=== PATIENT | male | born 1935 | race Caucasian/White ===

== ENCOUNTER 2016-08-18 07:21 | Emergency (ER) | payer MEDICARE ==
[~2016-08-18] VITALS: Ht 172.7 cm; Wt 77.0 kg
[~2016-08-18 07:21] MED LIST: CIPR500T4 PO; CIPR500T93 PO; FENT25DI TD; GLIP5 PO; HYDR-3533 PO; NEUR600T PO; PROT40TA PO; TAMS0.4C67 PO; URIB118C PO
[2016-08-18 07:27] VITALS: BP 143/81; PULSE 82; RESP 16; TEMP 98.6; O2SAT 99
[2016-08-18] MEDS ORDERED: TAMS5CAP PO (07:39)
[2016-08-18] MEDS ORDERED: FENT25DI T-DERMAL (07:39)
[2016-08-18] MEDS ORDERED: URIB118C PO (07:39)
[2016-08-18] MEDS ORDERED: GABA600T PO (07:39)
[2016-08-18] MEDS ORDERED: PROT40TA PO (07:39)
[2016-08-18] MEDS ORDERED: HYDR-3533 PO (07:39)
--- NOTE | 2016-08-18 08:00 | PD ---
HPI Chief Complaint: Musculoskeletal Complaint Time Seen by Provider: 07:34 Travel History International Travel<30 days: No Contact w/Intl Traveler<30days: No Traveled to known affect area: No History of Present Illness HPI This patient came because he was worried about aspirating. He has history of difficulty swallowing and esophageal narrowing. He's had throat cancer in the past. He is not having any shortness of breath. He has chronic back pain for many years. He follows with pain management and takes Lortab and Duragesic patch. No new acute back problem. No fall or fever. Symptoms severity is mild PFSH Past Medical History Arthritis: Yes Cardiovascular Problems: No High Cholesterol: No Diabetes: Yes Patient Takes Glucophage: No Diminished Hearing: Yes ([place]) GERD: Yes Genitourinary: Yes (enlaraged prostate ) Integumentary: Yes (MRSA LEFT FOREARM) Immunizations Current: Yes Influenza Vaccination: Yes Past Surgical History Cholecystectomy: Yes Social History Alcohol Use: No (quit ) Tobacco Use: No (QUIT OVER 50+ YEARS AGO- smokes socially 1-3 cigs) Substance Use: No Allergies-Medications (Allergen,Severity, Reaction): Coded Allergies: Sulfa (Unverified Allergy, Mild, RASH, 08/18/16) *MDRO Multi-Drug Resistant Organism (Verified Allergy, Unknown, 02/11/16) MRSA Abscess 02/2013 Reported Meds & Prescriptions Reported Meds & Active Scripts Active Reported Flomax (Tamsulosin HCl) 0.4 Mg Cap 0.4 Mg PO HS Uribel (Cpuvalfdejy-Ffyxy-Elkltvljr Blue) 1 Cap 1 Cap PO TID Lortab (Hydrocodone-Acetaminophen) 5-325 Mg Tab 1 Tab PO Q6H PRN Protonix (Pantoprazole Sodium) 40 Mg Tab 40 Mg PO DAILY Gabapentin 600 Mg Tab 600 Mg PO BID Fentanyl Patch 72 HR (Fentanyl) 25 Mcg/Hr Patch 25 Mcg T-DERMAL Q72H Review of Systems General / Constitutional: No: Fever HENT: No: Headaches Cardiovascular: No: Chest Pain or Discomfort Physical Exam Narrative NECK: Symmetrical appearance, midline trachea. No mass or crepitus. Thyroid without enlargement, tenderness, or mass. SKIN: Inspection shows no rash or ulcers. Palpation shows no induration or nodules. Back: Has muscular tenderness on either side of the spine. There is no midline tenderness. He has kyphosis and a lot of healed back scars Data Data Last Documented VS Vital Signs Date Time Temp Pulse Resp B/P Pulse Ox O2 Delivery O2 Flow Rate FiO2 08/18/16 07:27 98.6 82 16 143/81 99 MDM Medical Decision Making Medical Screen Exam Complete: Yes Emergency Medical Condition: Yes Medical Record Reviewed: Yes Differential Diagnosis Esophageal stricture, chronic back pain, anxiety Narrative Course I have reviewed the patient's electronic medical record. Was last here January 2016 for UTI Patient is neurologically intact and doesn't look particular symptomatic. His vital signs are normal. No red flags to suggest emergent imaging is indicated. Is to follow-up with primary care to discuss his chronic back pain and esophageal issues. May need endoscopy or esophageal dilation but not having an emergent issue today Discussed full liquid diet and avoidance of steak chicken and things that may be difficult to swallow Diagnosis Primary Impression: Chronic back pain greater than 3 months duration Additional Impression: History of esophageal stricture Referrals: Family Practice Physician call for appointment Rehabilitation Team Lead call for appointment Patient Instructions: General Instructions Departure Forms: Tests/Procedures Additional Instructions: The patient was advised to follow up with their physician and return if they worsen. Follow-up with GI physician Med/Other Pt SpecificInfo: Other Disposition: 01 DISCHARGE HOME Condition: Stable Johnson Beltran MD Aug 18, 2016 08:00
== END 2016-08-18 08:07 | disposition home or self-care (01) ==
LOC: PHED 07:21
DX: M54.9 Dorsalgia, unspecified (principal); G89.29 Other chronic pain; Z87.19 Personal history of other diseases of the digestive system; E11.9 Type 2 diabetes mellitus without complications; H91.90 Unspecified hearing loss, unspecified ear; Z85.89 Personal history of malignant neoplasm of other organs and systems; Z87.39 Personal history of other diseases of the musculoskeletal system and connective tissue; Z87.438 Personal history of other diseases of male genital organs; Z86.14 Personal history of Methicillin resistant Staphylococcus aureus infection; Z87.891 Personal history of nicotine dependence
CPT/HCPCS: 99283

== ENCOUNTER 2017-04-19 18:15 | Emergency (ER) | payer MEDICARE ==
[~2017-04-19] VITALS: Ht 172.7 cm; Wt 80.0 kg
[~2017-04-19 18:15] MED LIST changes: -CIPR500T4 PO; -CIPR500T93 PO; +FENT25DI T-DERMAL; -FENT25DI TD; +GABA600T PO; -GLIP5 PO; -NEUR600T PO; -TAMS0.4C67 PO; +TAMS5CAP PO
[2017-04-19 18:26] VITALS: BP 207/104; PULSE 103; RESP 20; TEMP 98.1; O2SAT 95
--- NOTE | 2017-04-19 18:57 | PD ---
HPI Chief Complaint: Complaint Time Seen by Provider: 18:41 Travel History International Travel<30 days: No Contact w/Intl Traveler<30days: No Traveled to known affect area: No History of Present Illness HPI PATIENT SEEN BY [facility] WHO DID BIOPSIES (BLADDER AND PROSTATE) AND PLACED A BOWMAN. BOWMAN WAS DRAINING WELL UNTIL TODAY WHEN IT STOPPED DRAINING AND PT DEVELOPED SUPRAPUBIC PAIN, 6/10, PRESSURE, NONRAD, NO ALLEVIATING/ AGGRAVATING...DENIES N/V/D/CP/SARMIENTO/FEVER AT THIS TIME PFSH Past Medical History Arthritis: Yes Cardiovascular Problems: No High Cholesterol: No Diabetes: Yes Diminished Hearing: Yes ([place]) GERD: Yes Genitourinary: Yes (enlaraged prostate ) Integumentary: Yes (MRSA LEFT FOREARM) Immunizations Current: Yes Past Surgical History Cholecystectomy: Yes Social History Alcohol Use: No (quit ) Tobacco Use: No (QUIT OVER 50+ YEARS AGO- smokes socially 1-3 cigs) Substance Use: No Allergies-Medications (Allergen,Severity, Reaction): Coded Allergies: Sulfa (Sulfonamide Antibiotics) (Unverified Allergy, Mild, RASH, 04/19/17) *MDRO Multi-Drug Resistant Organism (Verified Allergy, Unknown, 04/19/17) MRSA Abscess 02/2013 Reported Meds & Prescriptions Reported Meds & Active Scripts Active Reported Creon (Amylase/Lipase/Protease) 24,000-76,000-120,000 Units Cap 1 Cap PO TIDPC Flomax (Tamsulosin HCl) 0.4 Mg Cap 0.4 Mg PO HS Uribel (Msqcieezcyo-Bbwdz-Qmtjnbywu Blue) 1 Cap 1 Cap PO TID Lortab (Hydrocodone-Acetaminophen) 5-325 Mg Tab 1 Tab PO Q6H PRN Protonix (Pantoprazole Sodium) 40 Mg Tab 40 Mg PO DAILY Gabapentin 600 Mg Tab 600 Mg PO BID Fentanyl Patch 72 HR (Fentanyl) 25 Mcg/Hr Patch 25 Mcg T-DERMAL Q72H Review of Systems Except as stated in HPI: all other systems reviewed are Neg Genitourinary: Positive: Urgency, Other (SUPRAPUBIC PAIN) Physical Exam Narrative GENERAL: SKIN: Warm and dry. HEAD: Atraumatic. Normocephalic. EYES: Pupils equal and round. No scleral icterus. No injection or drainage. ENT: No nasal bleeding or discharge. Mucous membranes pink and moist. NECK: Trachea midline. No JVD. CARDIOVASCULAR: Regular rate and rhythm. RESPIRATORY: No accessory muscle use. Clear to auscultation. Breath sounds equal bilaterally. GASTROINTESTINAL: Abdomen soft, non-tender, SUPRAPUBIC MILDLY distended TO UMBILICUS. MUSCULOSKELETAL: Extremities without clubbing, cyanosis, or edema. No obvious deformities. NEUROLOGICAL: Awake and alert. No obvious cranial nerve deficits. Motor grossly within normal limits. Five out of 5 muscle strength in the arms and legs. Normal speech. PSYCHIATRIC: Appropriate mood and affect; insight and judgment normal. Data Data Last Documented VS Vital Signs Date Time Temp Pulse Resp B/P (MAP) Pulse Ox O2 Delivery O2 Flow Rate FiO2 04/19/17 19:29 65 15 141/82 (101) 98 Room Air 04/19/17 18:26 98.1 Orders Orders Ed Discharge Order (04/19/17 19:33) MDM Medical Decision Making Medical Screen Exam Complete: Yes Emergency Medical Condition: Yes Medical Record Reviewed: Yes Differential Diagnosis URINARY RETENTION DUE TO CLOTS Narrative Course PATIENT'S BOWMAN WAS IRRIGATED AND STARTED TO FLOW WELL AFTER 2 SEPARATE CLOTS WERE REMOVED, WILL D/C PATIENT HOME AND RECC TO F/U WITH UROLOGIST TOMORROW Diagnosis Primary Impression: Obstructed Bowman catheter Qualified Codes: T83.091A - Other mechanical complication of indwelling urethral catheter, initial encounter Patient Instructions: Bowman Catheter Placement and Care (GEN), General Instructions Additional Instructions: KEEP YOUR APPOINTMENT WITH UROLOGIST TOMORROW Disposition: 01 DISCHARGE HOME Condition: Stable Giuseppe Parker MD Apr 19, 2017 18:57
[2017-04-19] MEDS ORDERED: CREON24 PO (19:07)
[2017-04-19 19:29] VITALS: BP 141/82; PULSE 65; RESP 15; O2SAT 98
== END 2017-04-19 20:05 | disposition home or self-care (01) ==
LOC: PHED 18:15
DX: T83.091A Other mechanical complication of indwelling urethral catheter, initial encounter (principal)
CPT/HCPCS: 99282

== ENCOUNTER 2017-09-28 14:47 | Emergency (ER) | payer MEDICARE ==
[~2017-09-28] VITALS: Ht 172.7 cm; Wt 80.9 kg
[~2017-09-28 14:47] MED LIST changes: +CREON24 PO
[2017-09-28 14:49] VITALS: BP 169/90; PULSE 84; RESP 18; TEMP 98.4; O2SAT 99
[2017-09-28] MEDS ORDERED: ONDANSETRON HCL 4 MG/2 ML VIAL IVP ONE (15:00)
[2017-09-28] MEDS ORDERED: SODIUM CHLORIDE 0.9% FLUSH 10 ML FLUSH IV FLUSH PRN (15:00)
[2017-09-28] MEDS ORDERED: HYDROmorphone HCL PF 2 MG/ML VIAL IVS ONE (15:00)
--- NOTE | 2017-09-28 15:00 | PD ---
HPI Chief Complaint: Back/ Neck Pain or Injury Time Seen by Provider: 14:57 Travel History International Travel<30 days: No Contact w/Intl Traveler<30days: No Traveled to known affect area: No History of Present Illness HPI Patient comes in with a 2 day history of right sided right flank pain radiating toward his right lower quadrant. Rates it about a 8 out of 10 when it is occurring, although currently is just a little bit of soreness and rates it at about a 2 out of 10. Patient denies any associated factors such as fever, rash , headache, neck pain OR chest pain. Patient denies any alleviating or aggravating factors. Patient has allergy to sulfa Past medical history includes hard of hearing, wears glasses, cholecystectomy, GERD, enlarged prostate with urinary retention issues, patient has had diabetes also, the patient also has had a history of orthopedic surgeries such as bilateral knee surgeries and neck and back rods placed PFSH Past Medical History Arthritis: Yes Cardiovascular Problems: No High Cholesterol: No Diabetes: Yes Diminished Hearing: Yes ([place]) GERD: Yes Genitourinary: Yes (enlaraged prostate, urinary retention) Integumentary: Yes (MRSA LEFT FOREARM) Immunizations Current: Yes Past Surgical History Cholecystectomy: Yes Other Surgery: Yes (left shoulder) Social History Alcohol Use: No (quit ) Tobacco Use: No (QUIT OVER 50+ YEARS AGO- smokes socially 1-3 cigs) Substance Use: No Allergies-Medications (Allergen,Severity, Reaction): Coded Allergies: Sulfa (Sulfonamide Antibiotics) (Unverified Allergy, Mild, RASH, 09/28/17) *MDRO Multi-Drug Resistant Organism (Verified Allergy, Unknown, 09/28/17) MRSA Abscess 02/2013 Reported Meds & Prescriptions Reported Meds & Active Scripts Active Reported Creon (Amylase/Lipase/Protease) 24,000-76,000-120,000 Units Cap 1 Cap PO TIDPC Flomax (Tamsulosin HCl) 0.4 Mg Cap 0.4 Mg PO HS Uribel (Yhesusldkuy-Jgldq-Dzysjnkeq Blue) 1 Cap 1 Cap PO TID Protonix (Pantoprazole Sodium) 40 Mg Tab 40 Mg PO DAILY Gabapentin 600 Mg Tab 600 Mg PO BID Fentanyl Patch 72 HR (Fentanyl) 25 Mcg/Hr Patch 25 Mcg T-DERMAL Q72H Review of Systems General / Constitutional: No: Fever Eyes: No: Visual changes HENT: No: Headaches Cardiovascular: No: Chest Pain or Discomfort Respiratory: No: Shortness of Breath Gastrointestinal: No: Abdominal Pain Genitourinary: Positive: Flank Pain Musculoskeletal: No: Pain Skin: No Rash Neurologic: No: Weakness Psychiatric: No: Depression Endocrine: No: Polydipsia Hematologic/Lymphatic: No: Easy Bruising Physical Exam Narrative GENERAL: SKIN: Warm and dry. HEAD: Atraumatic. Normocephalic. EYES: Pupils equal and round. No scleral icterus. No injection or drainage. ENT: No nasal bleeding or discharge. Mucous membranes pink and moist. NECK: Trachea midline. No JVD. CARDIOVASCULAR: Regular rate and rhythm. RESPIRATORY: No accessory muscle use. Clear to auscultation. Breath sounds equal bilaterally. GASTROINTESTINAL: Abdomen soft, non-tender, nondistended. MUSCULOSKELETAL: Extremities without clubbing, cyanosis, or edema. No obvious deformities. NEUROLOGICAL: Awake and alert. No obvious cranial nerve deficits. Motor grossly within normal limits. Five out of 5 muscle strength in the arms and legs. Normal speech. PSYCHIATRIC: Appropriate mood and affect; insight and judgment normal. Data Data Last Documented VS Vital Signs Date Time Temp Pulse Resp B/P (MAP) Pulse Ox O2 Delivery O2 Flow Rate FiO2 09/28/17 16:45 81 16 142/77 (98) 100 Room Air 09/28/17 14:49 98.4 Orders Orders Complete Blood Count With Diff (09/28/17 14:57) Comprehensive Metabolic Panel (09/28/17 14:57) Lipase (09/28/17 14:57) Urinalysis - C+S If Indicated (09/28/17 14:57) Ct Abd/Pel W/O Iv Contrast (09/28/17 14:57) Iv Access Insert/Monitor (09/28/17 14:57) Ecg Monitoring (09/28/17 14:57) Oximetry (09/28/17 14:57) NPO (09/28/17 14:57) Hydromorphone Pf Inj (Dilaudid Pf Inj) (09/28/17 15:00) Ondansetron Inj (Zofran Inj) (09/28/17 15:00) Sodium Chloride 0.9% Flush (Ns Flush) (09/28/17 15:00) Electrocardiogram (09/28/17 14:57) Ketorolac Inj (Toradol Inj) (09/28/17 16:30) Labs Laboratory Tests Test 09/28/17 15:30 09/28/17 16:15 White Blood Count 6.3 TH/MM3 Red Blood Count 3.70 MIL/MM3 Hemoglobin 10.4 GM/DL Hematocrit 32.5 % Mean Corpuscular Volume 87.8 FL Mean Corpuscular Hemoglobin 28.2 PG Mean Corpuscular Hemoglobin Concent 32.1 % Red Cell Distribution Width 12.5 % Platelet Count 190 TH/MM3 Mean Platelet Volume 7.0 FL Neutrophils (%) (Auto) 53.9 % Lymphocytes (%) (Auto) 34.0 % Monocytes (%) (Auto) 8.0 % Eosinophils (%) (Auto) 3.0 % Basophils (%) (Auto) 1.1 % Neutrophils # (Auto) 3.4 TH/MM3 Lymphocytes # (Auto) 2.1 TH/MM3 Monocytes # (Auto) 0.5 TH/MM3 Eosinophils # (Auto) 0.2 TH/MM3 Basophils # (Auto) 0.1 TH/MM3 CBC Comment DIFF FINAL Differential Comment Blood Urea Nitrogen 19 MG/DL Creatinine 1.40 MG/DL Random Glucose 104 MG/DL Total Protein 8.5 GM/DL Albumin 3.3 GM/DL Calcium Level 8.5 MG/DL Alkaline Phosphatase 133 U/L Aspartate Amino Transf (AST/SGOT) 28 U/L Alanine Aminotransferase (ALT/SGPT) 24 U/L Total Bilirubin 0.4 MG/DL Sodium Level 134 MEQ/L Potassium Level 4.8 MEQ/L Chloride Level 104 MEQ/L Carbon Dioxide Level 22.3 MEQ/L Anion Gap 8 MEQ/L Estimat Glomerular Filtration Rate 48 ML/MIN Lipase 33 U/L Urine Color GREEN Urine Turbidity CLEAR Urine pH 5.0 Urine Specific [place] LESS/EQUAL 1.005 Urine Protein NEG mg/dL Urine Glucose (UA) NEG mg/dL Urine Ketones NEG mg/dL Urine Occult Blood NEG Urine Nitrite NEG Urine Bilirubin NEG Urine Urobilinogen 0.2 MG/DL Urine Leukocyte Esterase NEG Urine RBC 0-3 /hpf Urine WBC 0-2 /hpf Urine Squamous Epithelial Cells 0-5 /hpf Microscopic Urinalysis Comment CULT NOT INDICATED MDM Medical Decision Making Medical Screen Exam Complete: Yes Emergency Medical Condition: Yes Medical Record Reviewed: Yes Differential Diagnosis Pyelonephritis versus ureterolithiasis versus UTI versus pancreatitis versus AAA Narrative Course CBC shows no leukocytosis, normal platelet count, no left shift, mild anemia of 10.4 Chemistry shows normal electrolytes except for creatinine of 1.4 with a GFR of 48, normal liver function test, normal lipase function test. CT abdomen pelvis was read by radiologist shows no acute obstructive uropathy, slight prominence of the pancreatic head and uncinate process as well as minimal pack peripancreatic streakiness surrounding the pancreatic head raising the possibility of focal acute pancreatitis?, Chronic calcific pancreatitis, enlarged prostate, degenerative changes and scoliosis of the thoracolumbar spine. Diagnosis Primary Impression: Right flank pain NOS Patient Instructions: Clear Liquid Diet (ED), General Instructions, Pancreatitis (ED) Scripts Hydrocodone-Acetaminophen ([place]) 10-325 Mg Tab 1 TAB PO Q4H Y for PAIN, #14 TAB 0 Refills Prov: Giuseppe Parker MD 09/28/17 Ondansetron Odt (Zofran Odt) 4 Mg Tab 4 MG SL Q8HR Y for Nausea/Vomiting, #20 TAB 0 Refills Prov: Giuseppe Parker MD 09/28/17 Disposition: 01 DISCHARGE HOME Condition: Stable Giuseppe Parker MD Sep 28, 2017 15:00
[2017-09-28 15:03] VITALS: O2SAT 98
[2017-09-28 15:38] LABS: AUTOMATED NEUTROPHIL # 3.4 TH/MM3 (1.8-7.7); BASOPHIL # 0.1 TH/MM3 (0-0.2); BASOPHIL % 1.1 % (0.0-2.0); EOSINOPHIL # 0.2 TH/MM3 (0-0.4); HEMATOCRIT 32.5 % (39.0-51.0); HEMOGLOBIN 10.4 GM/DL (13.0-17.0); LYMPHOCYTE # 2.1 TH/MM3 (1.0-4.8); MEAN CELL VOLUME 87.8 FL (80.0-100.0); MEAN CORPUSCULAR HEMOGLOBIN 28.2 PG (27.0-34.0); MEAN CORPUSCULAR HGB CONC 32.1 % (32.0-36.0); MONOCYTE # 0.5 TH/MM3 (0-0.9); NEUT % 53.9 % (16.0-70.0); PLATELET COUNT 190 TH/MM3 (150-450); RED CELL DISTRIBUTION WIDTH 12.5 % (11.6-17.2); WHITE BLOOD COUNT 6.3 TH/MM3 (4.0-11.0)
[2017-09-28 15:45] LABS: CHLORIDE 104 MEQ/L (98-107); SODIUM (NA) 134 MEQ/L (136-145)
[2017-09-28 15:48] LABS: CALCIUM 8.5 MG/DL (8.5-10.1)
[2017-09-28 15:49] LABS: ALBUMIN 3.3 GM/DL (3.4-5.0); BICARBONATE 22.3 MEQ/L (21.0-32.0); BLOOD UREA NITROGEN 19 MG/DL (7-18); GLUCOSE,RANDOM 104 MG/DL (74-106)
[2017-09-28 15:51] LABS: ALT (GPT) 24 U/L (12-78); AST (GOT) 28 U/L (15-37)
[2017-09-28 15:52] LABS: GLOMERULAR FILTRATION RATE 48 ML/MIN (>89)
--- NOTE | 2017-09-28 15:52 | RADRPT ---
EXAM DATE/TIME: 09/28/2017 15:13 [facility] COMPARISON: CT PULMONARY ANGIOGRAM, December 29, 2014, 9:09. INDICATIONS : Right flank and low back pain. ORAL CONTRAST: No oral contrast ingested. RADIATION DOSE: 7.96 CTDIvol (mGy) MEDICAL HISTORY : Diabetes mellitus type 2. Gastroesophageal reflux disease. SURGICAL HISTORY : Cholecystectomy. Rods in cervical and lumbar spines. ENCOUNTER: Initial ACUITY: 1 week PAIN SCALE: 8/10 LOCATION: Right flank TECHNIQUE: Volumetric scanning of the abdomen and pelvis was performed. Using automated exposure control and ad justment of the mA and/or kV according to patient size, radiation dose was kept as low as reasonably achievable to obtain optimal diagnostic quality images. DICOM format image data is available electro nically for review and comparison. FINDINGS: LOWER LUNGS: Fibrotic scarring is noted within the lung bases posteriorly. LIVER: Homogeneous density without lesion. There is no dilation of the biliary tree. No calcified gallston es. SPLEEN: Normal size without lesion. PANCREAS: Slight prominence of the pancreatic head and uncinate process as well as minimal peripancreatic strea kiness surrounding the pancreatic head raising the possibility of focal acute pancreatitis. Correlati on with amylase and lipase is recommended. Punctate calcifications are noted throughout the pancreas indicating chronic calcific pancreatitis. KIDNEYS: Normal in size and shape. There is no mass, stone, or hydronephrosis. ADRENAL GLANDS: Within normal limits. VASCULAR: There is no aortic aneurysm. BOWEL/MESENTERY: The stomach, small bowel, and colon demonstrate no acute abnormality. There is no free intraperitone al air or fluid. ABDOMINAL WALL: Within normal limits. RETROPERITONEUM: There is no lymphadenopathy. BLADDER: No wall thickening or mass. REPRODUCTIVE: The prostate gland is enlarged. INGUINAL: There is no lymphadenopathy or hernia. MUSCULOSKELETAL: Degenerative changes and scoliosis of the thoraco-lumbar spine are noted. Extensive hardware is noted throughout the lumbar and lower thoracic spine. CONCLUSION: 1. No acute obstructive uropathy. 2. Slight prominence of the pancreatic head and uncinate process as well as minimal peripancreatic st reakiness surrounding the pancreatic head raising the possibility of focal acute pancreatitis. Correl ation with amylase and lipase is recommended. 3. Chronic calcific pancreatitis. 4. Enlarged prostate. 5. Degenerative changes and scoliosis of the thoracolumbar spine. Salomon Fink MD on September 28, 2017 at 15:40 Board Certified Radiologist. This report was verified electronically.
[2017-09-28 15:53] LABS: TOTAL BILIRUBIN ADULT 0.4 MG/DL (0.2-1.0); TOTAL PROTEIN 8.5 GM/DL (6.4-8.2)
[2017-09-28 15:54] LABS: ALKALINE PHOSPHATASE 133 U/L (45-117)
[2017-09-28 16:21] LABS: BILIRUBIN, URINE NEG (NEG); BLOOD, URINE NEG (NEG); GLUCOSE,URINE NEG (NEG); KETONE, URINE NEG (NEG); NITRITE,URINE NEG (NEG); URINE LEUKOCYTE ESTERASE NEG (NEG)
[2017-09-28 16:26] LABS: URINE COLOR GREEN (YELLW/STRAW)
[2017-09-28 16:28] LABS: RBC, URINE 0-3 /hpf (0-3); SQUAMOUS EPITHELIAL CELL URINE 0-5 /hpf (0-5); WBC, URINE 0-2 /hpf (0-5)
[2017-09-28] MEDS ORDERED: KETOROLAC TROMETHAMINE 30 MG/ML (IVP) VIAL IV PUSH ONE (16:30)
[2017-09-28 16:45] VITALS: BP 142/77; PULSE 81; RESP 16; O2SAT 100
[2017-09-28] MEDS ORDERED: HYDR-3366 PO (17:08)
[2017-09-28] MEDS ORDERED: ZOFR4TAB3 SL (17:08)
--- NOTE | 2017-09-29 16:57 | EKG ---
Date Performed: 09/28/2017 Time Performed: 15:10:31 PTAGE: 82 years EKG: NORMAL Sinus rhythm WITH FIRST DEGREE AV BLOCK ABNORMAL ECG Compared to PREVIOUS TRACING , patient now meets criteria for first degree AV block PREVIOUS TRACIN09/11/2015 17.02 DOCTOR: Deja Dc Interpretating Date/Time 09/29/2017 16:56:36
== END 2017-09-28 17:20 | disposition home or self-care (01) ==
LOC: PHED 14:47
DX: R10.9 Unspecified abdominal pain (principal); K86.1 Other chronic pancreatitis; N40.0 Benign prostatic hyperplasia without lower urinary tract symptoms; I44.0 Atrioventricular block, first degree; E11.9 Type 2 diabetes mellitus without complications; K21.9 Gastro-esophageal reflux disease without esophagitis; Z88.2 Allergy status to sulfonamides; Z72.0 Tobacco use; Z79.899 Other long term (current) drug therapy
CPT/HCPCS: 74176; 80053; 81001; 83690; 85025; 93005; 96374; 96375; 99285; J1170; J1885; J2405

== ENCOUNTER 2018-02-16 16:18 | Observation (INO) ==
[2018-02-16] MEDS ORDERED: Acetaminophen 325 MG Tablet PO ONE (16:44)
[2018-02-16] MEDS ORDERED: Sod Chloride 0.9% Inj 1,000 ML IV.SIG SCH (16:45)
[2018-02-16 17:07] LABS: Baso % (Auto) 0.2 % (0.0-2.0); Eos % (Auto) 0.1 % (0.0-4.0); Hematocrit 30.8 % (39.0-51.0); Hemoglobin 10.2 gm/dL (13.0-17.0); Lymph # (Auto) 1.2 th/mm3 (1.0-4.8); Lymph % (Auto) 13.7 % (9.0-44.0); Mean Corpuscular HGB Conc 33.1 % (32.0-36.0); Mean Corpuscular Hemoglobin 28.7 pg (27.0-34.0); Mean Corpuscular Volume 86.7 fL (80.0-100.0); Mean Platelet Volume 7.2 fL (7.0-11.0); Mono % (Auto) 10.6 % (0.0-8.0); Neut # (Auto) 6.8 th/mm3 (1.8-7.7); Neut % (Auto) 75.4 % (16.0-70.0); Platelet Count 141 th/mm3 (150-450); Red Blood Count 3.55 mil/mm3 (4.50-5.90); Red Cell Distribution Width 15.3 % (11.6-17.2)
--- NOTE | 2018-02-16 17:21 | XR ---
EXAM DATE: 02/16/2018 5:17 PM EDT AGE/SEX: 82 years / Male INDICATIONS: Shortness of breath. CLINICAL DATA: This is the patient's initial encounter. Patient reports that signs and symptoms have been present for 1 day and indicates a pain score of 0/10. MEDICAL/SURGICAL HISTORY: Diabetes. None. COMPARISON: [facility], CHEST SINGLE AP, 02/11/2016. . FINDINGS: The lungs are clear without infiltrate, nodule, or mass. There is no appreciable pleural effusion for technique. Heart and mediastinum are unremarkable. Total shoulder arthroplasty is agai n seen on the left. There are postsurgical changes lower thoracic lumbar spine junction with superimp osed degenerative change. CONCLUSION: No acute cardiopulmonary disease. Electronically signed by: Antonio Og MD 02/16/2018 5:20 PM EDT
[2018-02-16 17:27] LABS: Alanine Aminotransferase 21 U/L (12-78); Anion Gap 9 meq/L (5-15); Aspartate Aminotransferase 16 U/L (15-37); Blood Urea Nitrogen 26 mg/dL (7-18); Calcium 7.7 mg/dL (8.5-10.1); Carbon Dioxide 21.2 meq/L (21.0-32.0); Chloride 105 meq/L (98-107); Glomerular Filtration Rate 38 mL/min (>89); Glucose,Random 126 mg/dL (74-106); Lipase 22 U/L (73-393); Magnesium 1.8 mg/dL (1.5-2.5); Potassium 4.8 meq/L (3.5-5.1); Sodium 135 meq/L (136-145)
[2018-02-16 17:31] LABS: Alkaline Phosphatase 115 U/L (45-117); Total Protein 8.1 g/dL (6.4-8.2); Troponin I 0.03 ng/mL (0.02-0.05)
[2018-02-16 18:12] LABS: Bacteria,Urine Moderate /hpf; Bilirubin,Urine Negative (Negative); Clarity,Urine Cloudy (Clear); Color,Urine Blue (Yellw/Straw); Glucose,Urine (UA) Negative (Negative); Leukocyte Esterase,Urine Large (Negative); Mucus,Urine Few /lpf (Occasional); Nitrite,Urine Negative (Negative); Specific Gravity,Urine 1.013 (1.002-1.035); Squamous Epithelial Cell,Urine <1 /hpf (0-5)
--- NOTE | 2018-02-16 18:58 | CT ---
EXAM DATE: 02/16/2018 6:46 PM EDT AGE/SEX: 82 years / Male INDICATIONS: Altered mental status. CLINICAL DATA: This is the patient's initial encounter. Patient reports that signs and symptoms have been present for 1 day and indicates a pain score of 5/10. MEDICAL/SURGICAL HISTORY: None. None. RADIATION DOSE: 56.35 CTDI (mGy) COMPARISON: [facility], CT BRAIN W/O CONTRAST, 09/11/2015. . TECHNIQUE: CT of the head without contrast. Using automated exposure control and adjustment of the mA and/or kV according to patient size, radiation dose was kept as low as reasonably achievable to ob tain optimal diagnostic quality images. DICOM format image data is available electronically for revi ew and comparison. FINDINGS: There is no evidence for intracranial hemorrhage, mass effect, mass lesions, or edema. The visualize d bony structures appear intact. Slight degree of brain atrophy is seen. Slight periventricular whit e matter changes are seen nonspecific mostly consistent with chronic small vessel ischemic changes. There are no signs of acute infarction for technique. CONCLUSION: Slight chronic small vessel ischemic and atrophic changes. . Electronically signed by: Antonio Og MD 02/16/2018 6:57 PM EDT
--- NOTE | 2018-02-16 19:02 | CT ---
EXAM DATE: 02/16/2018 6:52 PM EDT AGE/SEX: 82 years / Male INDICATIONS: Abdomen pain. CLINICAL DATA: This is the patient's initial encounter. Patient reports that signs and symptoms have been present for 1 day and indicates a pain score of 5/10. MEDICAL/SURGICAL HISTORY: None. None. ORAL CONTRAST: No oral contrast ingested. RADIATION DOSE: 7.55 CTDI (mGy) COMPARISON: [facility], CT ABDOMEN & PELVIS W/O CONTRAST, 09/28/2017. . TECHNIQUE: Multiple contiguous axial images were obtained through the abdomen and pelvis following b olus infusion of 50 ml Visipaque 320 (iodixanol) nonionic water-soluble contrast as a single exam d ose. No oral contrast ingested. Using automated exposure control and adjustment of the mA and/or kV according to patient size, radiation dose was kept as low as reasonably achievable to obtain optimal diagnostic quality images. DICOM format image data is available electronically for review and compar jeri. FINDINGS: Abdomen CT: The liver, spleen, right kidney, adrenals are unremarkable. There is no evidence for any appreciable pathological adenopathy, free fluid, or bowel obstruction. The pancreas is atrophic and multiple calc ifications are present most likely from chronic pancreatitis. Approximate 2.2 cm simple cyst is prese nt in left kidney. There is scarring versus atelectasis both lung bases. Coronary artery calcificatio ns are seen typically seen with coronary artery disease and clinical correlation and evaluation is delong ggested. Pelvic CT: There is no evidence for mass, abscess formation, or any significant adenopathy within the pelvis. L umbar scoliosis is seen convexity towards the right with postsurgical changes within the lumbosacral spine. The prostate gland measures 5.0 x 5.7 cm in AP and transverse diameters inhomogeneous in ap pearance and nonspecific. CONCLUSION: Atrophic pancreas and calcifications within it chronic in nature, chronic changes of the patient's spine otherwise unremarkable. Electronically signed by: Antonio Og MD 02/16/2018 7:01 PM EDT
--- NOTE | 2018-02-16 19:23 | ED ---
HPI General Chief complaint: Altered Mental Status Stated complaint: AMS,Evac Time Seen by Provider: 02/16/18 16:44 History of Present Illness HPI narrative: Patient is an 82-year-old male presents emergency department for evaluation of altered mental status. Patient fairly confused and delirious on arrival, he is pleasant and cooperative however. He is oriented to self and place only. Cannot provide any of his history. Sometime after my initial evaluation with him arrives and states that he does have a history of frequent urinary tract infections and follows with urologist. She is also noticed that he has been febrile at home. No cough no congestion no nausea no vomiting no abdominal pain prior to his presentation today. Symptoms moderate, for the past 48 hours, gradually worsening, associated signs symptoms and context as above Related Data Home Medications Medication Instructions Recorded Confirmed hydrocodone-acetaminophen 1 tab PO TID PRN 02/16/18 02/16/18 [id number] [Creon] 3 cap PO AC 02/16/18 02/16/18 linnirty-hzfgw-xdg 1 tab PO TID 02/16/18 02/16/18 [Uribel] pantoprazole 40 mg PO DAILY 02/16/18 02/16/18 pregabalin [Lyrica] 75 mg PO DAILY 02/16/18 02/16/18 pregabalin [Lyrica] 150 mg PO HS 02/16/18 02/16/18 Allergies Allergy/AdvReac Type Severity Reaction Status Date / Time Sulfa (Sulfonamide Allergy Mild RASH Unverified 09/28/17 14:48 Antibiotics) Review of Systems ROS: all other systems reviewed are negative PMFSH Social History Social History Substance History: No History of Abuse Second Hand Smoke Exposure: Yes Smoking Status: Unknown if ever smoked How Often Do You Have a Drink Containing Alcohol: Unable to Obtain Recent Travel in [facility] within the Last 8 Weeks: No Recent Out of Country Travel within the Last 8 Weeks: No Immunization History Tetanus Immunization: Unable to Assess Hx Influenza Vaccine This Season: Unable to Assess Exam Narrative Exam Narrative: GENERAL: Well-developed well-nourished no obvious distress, pleasantly confused peer SKIN: Focused skin assessment warm/dry. HEAD: Atraumatic. Normocephalic. EYES: Pupils equal and round. No scleral icterus. No injection or drainage. ENT: No nasal bleeding or discharge. Mucous membranes pink and moist. NECK: Trachea midline. No JVD. CARDIOVASCULAR: Regular rate and rhythm. No murmur appreciated. RESPIRATORY: No accessory muscle use. Clear to auscultation. Breath sounds equal bilaterally. GASTROINTESTINAL: Abdomen soft, non-tender, nondistended. Hepatic and splenic margins not palpable. MUSCULOSKELETAL: No obvious deformities. No clubbing. No cyanosis. No edema. NEUROLOGICAL: Awake and alert, oriented 2. Cranial nerves II through XII grossly intact and nonfocal, 5 out of 5 strength in all 4 extremities per PSYCHIATRIC: Pleasantly confused. Insight and judgment fairly poor. Course Initial Documented Vital Signs Temperature 103.1 F H 02/16/18 16:25 Pulse Rate 90 02/16/18 16:25 Respiratory Rate 19 02/16/18 16:25 Blood Pressure 146/70 H 02/16/18 16:25 Pulse Oximetry 98 02/16/18 16:25 Last Documented Vital Signs Temperature 99.1 F 02/17/18 03:57 Pulse Rate 76 02/17/18 03:57 Respiratory Rate 18 02/17/18 03:57 Blood Pressure 126/62 02/17/18 03:57 Pulse Oximetry 98 02/17/18 03:57 Medical Decision Making MDM Narrative Medical decision making narrative: Patient room to the emergency department, delirium, has had a history of UTIs in the past per , UA does show some significant pyuria. Otherwise he has fever but no significant tachycardia or tachypnea, white count is within normal limits. Therefore only 1 out of 4 Sirs criteria not technically septic. Hemodynamically he is doing well. I started him on Rocephin. Will discuss with the hospitalist for admission for complicated UTI with delirium peer Medical Screen Exam Complete: Yes Emergency Medical Condition: Yes Lab Data Result diagrams: 02/17/18 04:30 02/17/18 04:30 Lab Results 02/16/18 02/16/18 02/16/18 Range/Units 16:40 16:40 16:45 WBC 9.0 (4.0-11.0) th/mm3 RBC 3.55 L (4.50-5.90) mil/mm3 Hgb 10.2 L (13.0-17.0) gm/dL Hct 30.8 L (39.0-51.0) % MCV 86.7 (80.0-100.0) fL MCH 28.7 (27.0-34.0) pg MCHC 33.1 (32.0-36.0) % RDW 15.3 (11.6-17.2) % Plt Count 141 L (150-450) th/mm3 MPV 7.2 (7.0-11.0) fL Prelim Diff (Auto) Neut % (Auto) 75.4 H (16.0-70.0) % Lymph % (Auto) 13.7 (9.0-44.0) % [place] % (Auto) 10.6 H (0.0-8.0) % Eos % (Auto) 0.1 (0.0-4.0) % Baso % (Auto) 0.2 (0.0-2.0) % Neut # (Auto) 6.8 (1.8-7.7) th/mm3 Lymph # (Auto) 1.2 (1.0-4.8) th/mm3 [place] # (Auto) 1.0 H (0.0-0.9) th/mm3 Eos # (Auto) 0.0 (0.0-0.4) th/mm3 Baso # (Auto) 0.0 (0.0-0.2) th/mm3 WBC Differential . Diff Scan Differential Comment Auto diff final Platelet Estimate (Normal) Platelet Morphology (Normal) Hematology Comments Sodium 135 L (136-145) meq/L Potassium 4.8 (3.5-5.1) meq/L Chloride 105 (98-107) meq/L Carbon Dioxide 21.2 (21.0-32.0) meq/L Anion Gap 9 (5-15) meq/L BUN 26 H (7-18) mg/dL Creatinine 1.71 H (0.60-1.30) mg/dL Estimated GFR 38 L (>89) mL/min Random Glucose 126 H (74-106) mg/dL Lactic Acid 1.2 (0.4-2.0) mmol/L Calcium 7.7 L (8.5-10.1) mg/dL Prot Corrected Calcium (8.5-10.1) mg/dL Magnesium 1.8 (1.5-2.5) mg/dL Total Bilirubin 0.6 (0.2-1.0) mg/dL AST 16 (15-37) U/L ALT 21 (12-78) U/L Alkaline Phosphatase 115 (45-117) U/L Troponin I 0.03 (0.02-0.05) ng/mL Total Protein 8.1 (6.4-8.2) g/dL Albumin 3.0 L (3.4-5.0) g/dL Lipase 22 L (73-393) U/L Urine Color (Yellw/Straw) Urine Clarity (Clear) Urine pH (5.0-8.5) Ur Specific [place] (1.002-1.035) Urine Protein (Neg-Trace) mg/dL Urine Glucose (UA) (Negative) mg/dL Urine Ketones (Negative) mg/dL Urine Occult Blood (Negative) Urine Nitrate (Negative) Urine Bilirubin (Negative) Urine Urobilinogen (Less than 2) mg/dL Ur Leukocyte Esterase (Negative) Urine RBC (0-3) /hpf Urine WBC (0-5) /hpf Urine WBC Clumps (None) Ur Squamous Epith Cells (0-5) /hpf Urine Bacteria (None) /hpf Urine Mucus (Occasional) /lpf Micro UA Comment Ur Microscopic Review Urine Culture Comments 02/16/18 02/17/18 02/17/18 Range/Units 17:35 04:30 04:30 WBC 8.9 (4.0-11.0) th/mm3 RBC 3.50 L (4.50-5.90) mil/mm3 Hgb 9.9 L (13.0-17.0) gm/dL Hct 30.2 L (39.0-51.0) % MCV 86.3 (80.0-100.0) fL MCH 28.4 (27.0-34.0) pg MCHC 32.9 (32.0-36.0) % RDW 15.8 (11.6-17.2) % Plt Count 112 L (150-450) th/mm3 MPV 8.0 (7.0-11.0) fL Prelim Diff (Auto) Slide review pending Neut % (Auto) 66.3 (16.0-70.0) % Lymph % (Auto) 20.5 (9.0-44.0) % [place] % (Auto) 12.3 H (0.0-8.0) % Eos % (Auto) 0.6 (0.0-4.0) % Baso % (Auto) 0.3 (0.0-2.0) % Neut # (Auto) 5.9 (1.8-7.7) th/mm3 Lymph # (Auto) 1.8 (1.0-4.8) th/mm3 [place] # (Auto) 1.1 H (0.0-0.9) th/mm3 Eos # (Auto) 0.1 (0.0-0.4) th/mm3 Baso # (Auto) 0.0 (0.0-0.2) th/mm3 WBC Differential . Diff Scan Auto diff confirmed Differential Comment . Platelet Estimate Low L (Normal) Platelet Morphology Normal (Normal) Hematology Comments Sodium 140 (136-145) meq/L Potassium 4.6 (3.5-5.1) meq/L Chloride 108 H (98-107) meq/L Carbon Dioxide 17.9 L (21.0-32.0) meq/L Anion Gap 14 (5-15) meq/L BUN 22 H (7-18) mg/dL Creatinine 1.49 H (0.60-1.30) mg/dL Estimated GFR 45 L (>89) mL/min Random Glucose 113 H (74-106) mg/dL Lactic Acid (0.4-2.0) mmol/L Calcium 7.4 L* (8.5-10.1) mg/dL Prot Corrected Calcium 7.5 L (8.5-10.1) mg/dL Magnesium (1.5-2.5) mg/dL Total Bilirubin 0.5 (0.2-1.0) mg/dL AST 17 (15-37) U/L ALT 16 (12-78) U/L Alkaline Phosphatase 104 (45-117) U/L Troponin I (0.02-0.05) ng/mL Total Protein 7.0 D (6.4-8.2) g/dL Albumin 2.6 L (3.4-5.0) g/dL Lipase (73-393) U/L Urine Color Blue (Yellw/Straw) Urine Clarity Cloudy H (Clear) Urine pH 5.0 (5.0-8.5) Ur Specific [place] 1.013 (1.002-1.035) Urine Protein Negative (Neg-Trace) mg/dL Urine Glucose (UA) Negative (Negative) mg/dL Urine Ketones Negative (Negative) mg/dL Urine Occult Blood Small H (Negative) Urine Nitrate Negative (Negative) Urine Bilirubin Negative (Negative) Urine Urobilinogen Less than 2 (Less than 2) mg/dL Ur Leukocyte Esterase Large H (Negative) Urine RBC 1 (0-3) /hpf Urine WBC 139 H (0-5) /hpf Urine WBC Clumps Few H (None) Ur Squamous Epith Cells <1 (0-5) /hpf Urine Bacteria Moderate H (None) /hpf Urine Mucus Few H (Occasional) /lpf Micro UA Comment Culture indicated Ur Microscopic Review Not Reportable Urine Culture Comments Culture indicated Imaging Data Radiologist's impression: Abdomen/Pelvis CT 02/16/18 16:43 CONCLUSION: Atrophic pancreas and calcifications within it chronic in nature, chronic changes of the patient's spine otherwise unremarkable. Chest X-Ray 02/16/18 16:43 CONCLUSION: No acute cardiopulmonary disease. Head CT 02/16/18 16:43 CONCLUSION: Slight chronic small vessel ischemic and atrophic changes. . Discharge Plan Discharge Disposition Patient Disposition: 30 Still Patient Physicians Team ED Provider: Salomon Seth Primary Care Provider: UNKNOWN, Attending Provider: Miroslava Escalera Discharge Interventions Interventions: ED Discharge Assessment Last Done: 02/16/18 20:28 Vital Signs Last Done: 02/16/18 19:21 Status ED Status: Left Department Discharge Information Discharge Date/Time: 02/16/18 20:36
[2018-02-16] MEDS ORDERED: Bisacodyl 10 MG Supp RECTAL PRN (19:28)
[2018-02-16] MEDS ORDERED: Acetaminophen 325 MG Tablet PO PRN (19:28)
--- NOTE | 2018-02-16 19:29 | P.HPIM ---
History of Present Illness Primary Care Physician: UNKNOWN History of Present Illness: This is an 82-year-old male with a PMH of HTN and Chronic Pancreatitis who was brought to the ER by EMS secondary to AMS. Unable to obtain history from patient due to mental status. Per report, pt was noted to be acting strange by family members, didn't recognize granddaughter and has had episodes of confusion. No reported neuro deficits. On arrival, BP 146/70, HR 90, O2 sat 98 % on RA, Temp 103.1. WBC 9.0. Hemoglobin 10.2. Platelets 141. Creatinine 1.71, previously 1.40 on 09/28/2017. Lactic Acid 1.2. UA positive UTI. CT Head with slight chronic small vessel ischemic changes. CXR with no acute findings. CT Abdomen/Pelvis atrophic pancreas and calcifications, chronic. S/ p Rocephin in ER. - Diagnosis (1) Encephalopathy (2) UTI (urinary tract infection) (3) Renal insufficiency Review of Systems PAST FAMILY HISTORY: Unable to obtain. unobtainable due to mental status PMFSH - History History Provided By: Patient - Medical History Medical History: Medical History (Last Updated 02/16/18 @ 17:28 by Kedar Bailey RN) Surgical history unknown Diabetes type 2, controlled - Surgical History Surgical History: Surgical History (Last Updated 02/16/18 @ 17:29 by Kedar Bailey RN) H/O neck surgery History of back surgery History of bilateral knee replacement - Tobacco History Smoking Status: Former smoker - Alcohol History How Often Do You Have a Drink Containing Alcohol: Never - Travel History Recent Travel in the [place] Within the Last 8 Weeks: No Recent Travel Out of the Country Within the Last 8 Weeks: No - Immunization History Tetanus Immunization: Unable to Assess Hx Influenza Vaccine This Season: Unable to Assess Medications and Allergies Active Medications: Active Medications Sodium Chloride (Ns Inj) 1,000 mls @ 0 mls/hr IV.SIG BOLUS JORGE Last Admin: 02/16/18 17:00 Dose: 999 mls/hr Allergies Allergy/AdvReac Type Severity Reaction Status Date / Time Sulfa (Sulfonamide Allergy Mild RASH Unverified 09/28/17 14:48 Antibiotics) Home Medications Medication Instructions Recorded Confirmed Type hydrocodone-acetaminophen 1 tab PO TID PRN 02/16/18 02/16/18 History udmfrz-[id number] [Creon] 3 cap PO AC 02/16/18 02/16/18 History methen-marah-s.sndr-lwnkv-lad 1 tab PO TID 02/16/18 02/16/18 History [Uribel] pantoprazole 40 mg PO DAILY 02/16/18 02/16/18 History pregabalin [Lyrica] 75 mg PO DAILY 02/16/18 02/16/18 History pregabalin [Lyrica] 150 mg PO HS 02/16/18 02/16/18 History Exam Vital signs: Vital Signs 02/16/18 16:25 02/16/18 19:21 Temperature 103.1 F H Pulse Rate 90 79 Respiratory Rate 19 16 Blood Pressure 146/70 H 133/62 Pulse Oximetry 98 98 Intake & Output 02/16/18 02/16/18 02/17/18 06:59 18:59 06:59 Weight 81.647 kg Narrative: PE: GENERAL: Elderly white male in no acute distress, pleasantly confused.. SKIN: Focused skin assessment warm and dry. HEENT: PERRLA, EOMI. No scleral icterus or conjunctival pallor. No lid lag or facial droop. CARDIOVASCULAR: Regular rate and rhythm. No obvious murmurs to auscultation. No chest tenderness to palpation. RESPIRATORY: No obvious rhonchi or wheezing. Clear to auscultation. Breath sounds equal bilaterally. GASTROINTESTINAL: Abdomen soft, non-tender, nondistended. BS normal. MUSCULOSKELETAL: Extremities without clubbing, cyanosis, or edema. No obvious deformities. NEUROLOGICAL: Awake, alert and oriented to person, place. No focal neurologic deficits. Moving both upper and lower extremities spontaneously. PSYCHIATRIC: Appropriate mood and affect. Insight and judgment normal. Results - Labs CBC & Chem 7: 02/16/18 16:45 02/16/18 16:40 Labs: Short CBC 02/16/18 Range/Units 16:45 WBC 9.0 (4.0-11.0) th/mm3 Hgb 10.2 L (13.0-17.0) gm/dL Hct 30.8 L (39.0-51.0) % Plt Count 141 L (150-450) th/mm3 BMP 02/16/18 16:40 Sodium 135 L Potassium 4.8 Chloride 105 Carbon Dioxide 21.2 BUN 26 H Creatinine 1.71 H Calcium 7.7 L Cardiac Enzymes 02/16/18 Range/Units 16:40 Troponin I 0.03 (0.02-0.05) ng/mL Liver Function 02/16/18 Range/Units 16:40 Total Bilirubin 0.6 (0.2-1.0) mg/dL AST 16 (15-37) U/L ALT 21 (12-78) U/L Alkaline Phosphatase 115 (45-117) U/L Albumin 3.0 L (3.4-5.0) g/dL Urine 02/16/18 Range/Units 17:35 Urine Color Blue (Yellw/Straw) Urine Clarity Cloudy H (Clear) Urine pH 5.0 (5.0-8.5) Ur Specific [place] 1.013 (1.002-1.035) Urine Protein Negative (Neg-Trace) mg/dL Urine Glucose (UA) Negative (Negative) mg/dL - Imaging Impressions Abdomen/Pelvis CT 02/16/18 16:43 CONCLUSION: Atrophic pancreas and calcifications within it chronic in nature, chronic changes of the patient's spine otherwise unremarkable. Chest X-Ray 02/16/18 16:43 CONCLUSION: No acute cardiopulmonary disease. Head CT 02/16/18 16:43 CONCLUSION: Slight chronic small vessel ischemic and atrophic changes. . Caprini VTE Risk Assessment Caprini VTE Risk Assessment: No/Low Risk (score <= 1) Caprini Risk Assessment Model: Point Value = 1 Point Value = 2 Point Value = 3 Point Value = 5 Age 41-60 Minor surgery BMI > 25 kg/m2 Swollen legs Varicose veins or History of unexplained or recurrent spontaneous Oral contraceptives or hormone replacement Sepsis (< 1 month) Serious lung disease, including pneumonia (< 1 month) Abnormal pulmonary function Acute myocardial infarction Congestive heart failure (< 1 month) History of inflammatory bowel disease Medical patient at bed rest Age 61-74 Arthroscopic surgery Major open surgery (> 45 min) Laparoscopic surgery (> 45 min) Malignancy Confined to bed (> 72 hours) Immobilizing plaster cast Central venous access Age >= 75 History of VTE Family history of VTE Factor V Leiden Prothrombin [id number] Lupus anticoagulant Anticardiolipin antibodies Elevated serum homocysteine Heparin-induced thrombocytopenia Other congenital or acquired thrombophilia Stroke (< 1 month) Elective arthroplasty Hip, pelvis, or leg fracture Acute spinal cord injury (< 1 month) Prophylaxis Regimen: Total Risk Factor Score Risk Level Prophylaxis Regimen 0-1 Low Early ambulation 2 Moderate Order ONE of the following: *Sequential Compression Device (SCD) *Heparin 5000 units SQ BID 3-4 Higher Order ONE of the following medications: *Heparin 5000 units SQ TID *Enoxaparin/Lovenox 40 mg SQ daily (WT < 150 kg, CrCl > 30 mL/min) *Enoxaparin/Lovenox 30 mg SQ daily (WT < 150 kg, CrCl > 10-29 mL/min) *Enoxaparin/Lovenox 30 mg SQ BID (WT < 150 kg, CrCl > 30 mL/min) AND/OR *Sequential Compression Device (SCD) 5 or more Highest Order ONE of the following medications: *Heparin 5000 units SQ TID (Preferred with Epidurals) *Enoxaparin/Lovenox 40 mg SQ daily (WT < 150 kg, CrCl > 30 mL/min) *Enoxaparin/Lovenox 30 mg SQ daily (WT < 150 kg, CrCl > 10-29 mL/min) *Enoxaparin/Lovenox 30 mg SQ BID (WT < 150 kg, CrCl > 30 mL/min) AND *Sequential Compression Device (SCD) Assessment and Plan - Assessment (1) Encephalopathy Code(s): G93.40 - Encephalopathy, unspecified Status: Acute (2) UTI (urinary tract infection) Code(s): N39.0 - Urinary tract infection, site not specified Status: Acute (3) Renal insufficiency Code(s): N28.9 - Disorder of kidney and ureter, unspecified Status: Acute - Plan A/P: 1. Encephalopathy: Likely underlying/worsening dementia compounded by acute infection w/ UTI. CT Head w/ no acute findings, images reviewed. Admit for Observation, Neuro Checks, PT for eval/tx. Consult Neuro if no improvement after IV Abx. 2. UTI: U/a w/ UTI, s/p Rocephin, continue IV Abx, follow up cultures, monitor I/O. 3. MICHAEL: Creatinine 1.71, previously 1.40 on 09/28/17, likely secondary to UTI/ Dehydration, IVF for hydration, repeat labs in am. 4. DVT Prophylaxis: SCD/Teds 5. Social work for d/c planning as needed. 6. Case discussed w/ ER physician at length, labs/records/imaging reviewed by me.
[2018-02-16] MEDS: Senna/Docusate Sodium 8.6/50 MG Tablet PO SCH (23:02)
[2018-02-16] MEDS: Sod Chloride 0.9% Inj 1,000 ML IV.CONT SCH (23:02)
[2018-02-17] MEDS: Sod Chloride 0.9% Inj 1,000 ML IV.CONT SCH ×3 (05:16→14:59)
[2018-02-17 05:56] LABS: Baso % (Auto) 0.3 % (0.0-2.0); Eos # (Auto) 0.1 th/mm3 (0.0-0.4); Eos % (Auto) 0.6 % (0.0-4.0); Hematocrit 30.2 % (39.0-51.0); Hemoglobin 9.9 gm/dL (13.0-17.0); Lymph # (Auto) 1.8 th/mm3 (1.0-4.8); Lymph % (Auto) 20.5 % (9.0-44.0); Mean Corpuscular HGB Conc 32.9 % (32.0-36.0); Mean Corpuscular Hemoglobin 28.4 pg (27.0-34.0); Mean Corpuscular Volume 86.3 fL (80.0-100.0); Mono # (Auto) 1.1 th/mm3 (0.0-0.9); Mono % (Auto) 12.3 % (0.0-8.0); Neut # (Auto) 5.9 th/mm3 (1.8-7.7); Neut % (Auto) 66.3 % (16.0-70.0); Platelet Count 112 th/mm3 (150-450); Red Cell Distribution Width 15.8 % (11.6-17.2); White Blood Count 8.9 th/mm3 (4.0-11.0)
[2018-02-17 06:01] LABS: Albumin 2.6 g/dL (3.4-5.0); Calcium 7.4 mg/dL (8.5-10.1); Carbon Dioxide 17.9 meq/L (21.0-32.0); Potassium 4.6 meq/L (3.5-5.1)
[2018-02-17 06:23] LABS: Platelet Morphology Normal (Normal)
[2018-02-17] MEDS: Senna/Docusate Sodium 8.6/50 MG Tablet PO SCH ×2 (08:31→22:10)
--- NOTE | 2018-02-17 09:44 | P.PN ---
Subjective Interval history: Follow-up visit HTN, chronic pain, urinary tract infection. Patient seen and examined today. at the bedside. Reports he is doing better. states that patient is back to his baseline mentation. Denies pain and discomfort. Denies SOB/ dyspnea. Denies chest pain, palpitations, headaches, dizziness. Denies fevers, chills, n/v/d. Physical Exam Vital signs: Vital Signs 02/16/18 16:25 02/16/18 19:21 02/16/18 20:00 Temperature 103.1 F H 98.5 F Pulse Rate 90 79 68 Respiratory Rate 19 18 Blood Pressure 146/70 H 133/62 114/54 L Pulse Oximetry 98 98 98 02/17/18 00:00 02/17/18 03:57 02/17/18 07:59 Temperature 98 F 99.1 F 98.2 F Pulse Rate 68 76 73 Respiratory Rate 18 18 20 Blood Pressure 115/56 L 126/62 120/58 L Pulse Oximetry 99 98 73 L Intake & Output 02/16/18 02/17/18 02/17/18 18:59 06:59 18:59 Intake Total 1100 / 1100 1000 / 1000 Balance 1100 / 1100 1000 / 1000 Weight 81.647 kg Intake: IV 1100 / 1100 1000 / 1000 NS Inj 1,000 ML @ 100 mls/hr IV 1000 / 1000 .CONT .Q10H JORGE Rx#:[id number] NS Inj 1,000 ML @ Wide Open IV. 1000 / 1000 SIG BOLUS [facility] Rx#:[id number] Rocephin Inj 1,000 MG In NS Inj 100 / 100 100 ML @ 200 mls/hr IV.SIG ONCE ONE Rx#:[id number] Other: # Voids 2 Date of Last Bowel Movement 02/14/18 Weight On Admission 81.64 kg Narrative: GENERAL: This is a well-nourished, well-developed patient, in no apparent distress. SKIN: Warm and dry HEENT: Normocephalic. Pupils equal round and reactive. Nose without bleeding. Airway patent. NECK: Trachea midline. Supple. CARDIOVASCULAR: Regular rate and rhythm without murmurs, gallops, or rubs. RESPIRATORY: Diminished bases. No wheezes, rales, or rhonchi. GASTROINTESTINAL: Abdomen soft, non-tender, nondistended. Bowel Sounds normoactive x4. MUSCULOSKELETAL: Extremities without clubbing, cyanosis, or edema. NEUROLOGICAL: Awake and alert. Oriented to person, knows he is in the hospital but does not know which hospital. No focal neuro deficit. Moves all extremities. Normal speech. Results - Labs CBC & Chem 7: 02/17/18 04:30 02/17/18 04:30 Laboratory Results - last 24 hr 02/16/18 02/16/18 02/16/18 16:40 16:40 16:45 WBC 9.0 RBC 3.55 L Hgb 10.2 L Hct 30.8 L MCV 86.7 MCH 28.7 MCHC 33.1 RDW 15.3 Plt Count 141 L MPV 7.2 Prelim Diff (Auto) Neut % (Auto) 75.4 H Lymph % (Auto) 13.7 [place] % (Auto) 10.6 H Eos % (Auto) 0.1 Baso % (Auto) 0.2 Neut # (Auto) 6.8 Lymph # (Auto) 1.2 [place] # (Auto) 1.0 H Eos # (Auto) 0.0 Baso # (Auto) 0.0 WBC Differential . Diff Scan Differential Comment Auto diff final Platelet Estimate Platelet Morphology Hematology Comments Sodium 135 L Potassium 4.8 Chloride 105 Carbon Dioxide 21.2 Anion Gap 9 BUN 26 H Creatinine 1.71 H Estimated GFR 38 L Random Glucose 126 H Lactic Acid 1.2 Calcium 7.7 L Prot Corrected Calcium Magnesium 1.8 Total Bilirubin 0.6 AST 16 ALT 21 Alkaline Phosphatase 115 Troponin I 0.03 Total Protein 8.1 Albumin 3.0 L Lipase 22 L Urine Color Urine Clarity Urine pH Ur Specific [place] Urine Protein Urine Glucose (UA) Urine Ketones Urine Occult Blood Urine Nitrate Urine Bilirubin Urine Urobilinogen Ur Leukocyte Esterase Urine RBC Urine WBC Urine WBC Clumps Ur Squamous Epith Cells Urine Bacteria Urine Mucus Micro UA Comment Ur Microscopic Review Urine Culture Comments 02/16/18 02/17/18 02/17/18 17:35 04:30 04:30 WBC 8.9 RBC 3.50 L Hgb 9.9 L Hct 30.2 L MCV 86.3 MCH 28.4 MCHC 32.9 RDW 15.8 Plt Count 112 L MPV 8.0 Prelim Diff (Auto) Slide review pending Neut % (Auto) 66.3 Lymph % (Auto) 20.5 [place] % (Auto) 12.3 H Eos % (Auto) 0.6 Baso % (Auto) 0.3 Neut # (Auto) 5.9 Lymph # (Auto) 1.8 [place] # (Auto) 1.1 H Eos # (Auto) 0.1 Baso # (Auto) 0.0 WBC Differential . Diff Scan Auto diff confirmed Differential Comment . Platelet Estimate Low L Platelet Morphology Normal Hematology Comments Sodium 140 Potassium 4.6 Chloride 108 H Carbon Dioxide 17.9 L Anion Gap 14 BUN 22 H Creatinine 1.49 H Estimated GFR 45 L Random Glucose 113 H Lactic Acid Calcium 7.4 L* Prot Corrected Calcium 7.5 L Magnesium Total Bilirubin 0.5 AST 17 ALT 16 Alkaline Phosphatase 104 Troponin I Total Protein 7.0 D Albumin 2.6 L Lipase Urine Color Blue Urine Clarity Cloudy H Urine pH 5.0 Ur Specific [place] 1.013 Urine Protein Negative Urine Glucose (UA) Negative Urine Ketones Negative Urine Occult Blood Small H Urine Nitrate Negative Urine Bilirubin Negative Urine Urobilinogen Less than 2 Ur Leukocyte Esterase Large H Urine RBC 1 Urine WBC 139 H Urine WBC Clumps Few H Ur Squamous Epith Cells <1 Urine Bacteria Moderate H Urine Mucus Few H Micro UA Comment Culture indicated Ur Microscopic Review Not Reportable Urine Culture Comments Culture indicated - Imaging Impressions Abdomen/Pelvis CT 02/16/18 16:43 CONCLUSION: Atrophic pancreas and calcifications within it chronic in nature, chronic changes of the patient's spine otherwise unremarkable. Chest X-Ray 02/16/18 16:43 CONCLUSION: No acute cardiopulmonary disease. Head CT 02/16/18 16:43 CONCLUSION: Slight chronic small vessel ischemic and atrophic changes. . Assessment and Plan - Assessment (1) Encephalopathy Code(s): G93.40 - Encephalopathy, unspecified Status: Acute (2) UTI (urinary tract infection) Code(s): N39.0 - Urinary tract infection, site not specified Status: Acute (3) Renal insufficiency Code(s): N28.9 - Disorder of kidney and ureter, unspecified Status: Acute - Plan 82-year-old male with a PMH of HTN and Chronic Pancreatitis who was brought to the ER by EMS secondary to AMS. Unable to obtain history from patient due to mental status. Encephalopathy: Likely underlying/worsening dementia compounded by acute infection w/ UTI. -CT Head w/ no acute findings. -Neuro Checks, PT for eval/tx. -IV Abx -As per back to baseline UTI: U/a w/ UTI -Continue Rocephin -follow up cultures, growing gram-negative cornelia -P.o. fluid hydration MICHAEL: Creatinine 1.71, previously 1.40 on 09/28/17, likely secondary to UTI/ Dehydration -IVF for hydration -Avoid nephrotoxic -Monitor renal indicis DVT Prophylaxis: SCD/Teds Code Status: Full code Discussed Condition With: Patient, nurse Discharge Planning: Plan to DC home when clinically improved. Cultures pending sensitivity
[2018-02-17] MEDS: Pregabalin 75 MG Capsule PO SCH (11:16)
[2018-02-17] MEDS ORDERED: [UNRECOGNIZED DRUG - OTHER] PO SCH (13:00)
[2018-02-17] MEDS: Lipase/Protease/Amylase 12/38/60 DR Capsule PO SCH ×2 (13:14→17:43)
--- NOTE | 2018-02-17 15:59 | ECG ---
Date Performed: 02/16/2018 Time Performed: 16:54:40 PTAGE: 82 years EKG: Sinus rhythm BORDERLINE LEFT AXIS DEVIATION Compared to previous tracing, ME interval slightly shorter, otherwise no significant change. BORDERLINE ECG PREVIOUS TRACING : 09/28/2017 15.10 DOCTOR: Eugenio Pike Interpretating Date/Time 02/17/2018 15:58:47
[2018-02-17] MEDS ORDERED: FENTANYL 12 MCG/HR TOPICAL SCH (18:00)
[2018-02-18] MEDS: Sod Chloride 0.9% Inj 1,000 ML IV.CONT SCH (01:35)
[2018-02-18 06:39] LABS: Baso % (Auto) 0.4 % (0.0-2.0); Eos # (Auto) 0.1 th/mm3 (0.0-0.4); Eos % (Auto) 1.4 % (0.0-4.0); Hematocrit 26.5 % (39.0-51.0); Lymph # (Auto) 1.1 th/mm3 (1.0-4.8); Lymph % (Auto) 19.9 % (9.0-44.0); Mean Corpuscular HGB Conc 34.2 % (32.0-36.0); Mean Corpuscular Hemoglobin 28.9 pg (27.0-34.0); Mean Corpuscular Volume 84.6 fL (80.0-100.0); Mean Platelet Volume 7.6 fL (7.0-11.0); Mono # (Auto) 0.6 th/mm3 (0.0-0.9); Mono % (Auto) 10.8 % (0.0-8.0); Neut # (Auto) 3.8 th/mm3 (1.8-7.7); Neut % (Auto) 67.5 % (16.0-70.0); Platelet Count 137 th/mm3 (150-450); Red Blood Count 3.13 mil/mm3 (4.50-5.90); Red Cell Distribution Width 15.6 % (11.6-17.2); White Blood Count 5.7 th/mm3 (4.0-11.0)
[2018-02-18 06:51] LABS: Calcium 7.8 mg/dL (8.5-10.1); Carbon Dioxide 20.3 meq/L (21.0-32.0); Potassium 4.2 meq/L (3.5-5.1)
[2018-02-18] MEDS ORDERED: Sodium Chloride 0.45 % Inj 1,000 ML IV.CONT SCH (08:00)
[2018-02-18 08:53] VITALS: RESP 16; O2SAT 100
--- NOTE | 2018-02-18 09:02 | P.PN ---
Subjective Interval history: Follow-up visit HTN, chronic pain, urinary tract infection, MICHAEL. Patient seen and examined today. States he is feeling better today. However he did not get enough sleep overnight. States he is at [facility], he knows the year. Possibly at baseline. No worsening dysuria. Denies pain and discomfort. Denies SOB/ dyspnea. Denies chest pain, palpitations, headaches, dizziness. Denies fevers, chills, n/v/d. Physical Exam Vital signs: Vital Signs 02/17/18 10:08 02/17/18 12:18 02/17/18 16:17 Temperature 98.2 F 98.2 F 98.2 F Pulse Rate 73 70 70 Respiratory Rate 20 20 20 Blood Pressure 142/60 H 128/60 145/60 H Pulse Oximetry 95 96 98 02/17/18 19:50 02/17/18 23:37 02/18/18 03:45 Temperature 98.4 F 98.2 F 98.5 F Pulse Rate 81 67 68 Respiratory Rate 17 17 17 Blood Pressure 142/65 H 132/61 162/69 H Pulse Oximetry 98 96 97 02/18/18 08:00 Temperature 99.1 F Pulse Rate 62 Respiratory Rate 16 Blood Pressure 163/72 H Pulse Oximetry 100 Intake & Output 02/17/18 02/18/18 02/18/18 18:59 06:59 18:59 Intake Total 1999 1100 / 1100 Balance 1999 1100 / 1100 Weight 81.647 kg Intake: IV 1999 1100 / 1100 NS Inj 1,000 ML @ 100 mls/hr IV 1000 / 1000 1000 / 1000 .CONT .Q10H JORGE Rx#:[id number] NS Inj 1,000 ML @ Wide Open IV. 1000 / 1000 SIG BOLUS JORGE Rx#:[id number] Rocephin Inj 1,000 MG In NS Inj 100 / 100 100 ML @ 200 mls/hr IV.SIG Q24H JORGE Rx#:[id number] Other: # Voids 2 4 Date of Last Bowel Movement 02/14/18 02/17/18 Narrative: GENERAL: This is a well-nourished, well-developed patient, in no apparent distress. SKIN: Warm and dry HEENT: Normocephalic. Pupils equal round and reactive. Nose without bleeding. Airway patent. NECK: Trachea midline. Supple. CARDIOVASCULAR: Regular rate and rhythm without murmurs, gallops, or rubs. RESPIRATORY: Diminished bases. No wheezes, rales, or rhonchi. GASTROINTESTINAL: Abdomen soft, non-tender, nondistended. Bowel Sounds normoactive x4. MUSCULOSKELETAL: Extremities without clubbing, cyanosis, or edema. NEUROLOGICAL: Awake and alert. Oriented to person, knows he is in the hospital but does not know which hospital. No focal neuro deficit. Moves all extremities. Normal speech. Results - Labs CBC & Chem 7: 02/18/18 05:08 02/18/18 05:08 Laboratory Results - last 24 hr 02/16/18 02/18/18 02/18/18 17:35 05:08 05:08 WBC 5.7 RBC 3.13 L Hgb 9.0 L Hct 26.5 L MCV 84.6 MCH 28.9 MCHC 34.2 RDW 15.6 Plt Count 137 L MPV 7.6 Neut % (Auto) 67.5 Lymph % (Auto) 19.9 [place] % (Auto) 10.8 H Eos % (Auto) 1.4 Baso % (Auto) 0.4 Neut # (Auto) 3.8 Lymph # (Auto) 1.1 [place] # (Auto) 0.6 Eos # (Auto) 0.1 Baso # (Auto) 0.0 WBC Differential . Differential Comment Auto diff final Sodium 143 Potassium 4.2 Chloride 113 H Carbon Dioxide 20.3 L Anion Gap 10 BUN 19 H Creatinine 1.33 H Estimated GFR 51 L POC Glucose Random Glucose 109 H Calcium 7.8 L Total Creatine Kinase Urine Color Blue Urine Clarity Cloudy H Urine pH 5.0 Ur Specific [place] 1.013 Urine Protein Negative Urine Glucose (UA) Negative Urine Ketones Negative Urine Occult Blood Small H Urine Nitrate Negative Urine Bilirubin Negative Urine Urobilinogen Less than 2 Ur Leukocyte Esterase Large H Urine RBC 1 Urine WBC 139 H Urine WBC Clumps Few H Ur Squamous Epith Cells <1 Urine Bacteria Moderate H Urine Mucus Few H Micro UA Comment Culture indicated Urine Culture Comments Culture indicated 02/18/18 02/18/18 05:08 06:30 WBC RBC Hgb Hct MCV MCH MCHC RDW Plt Count MPV Neut % (Auto) Lymph % (Auto) [place] % (Auto) Eos % (Auto) Baso % (Auto) Neut # (Auto) Lymph # (Auto) [place] # (Auto) Eos # (Auto) Baso # (Auto) WBC Differential Differential Comment Sodium Potassium Chloride Carbon Dioxide Anion Gap BUN Creatinine Estimated GFR POC Glucose 88 Random Glucose Calcium Total Creatine Kinase 72 Urine Color Urine Clarity Urine pH Ur Specific [place] Urine Protein Urine Glucose (UA) Urine Ketones Urine Occult Blood Urine Nitrate Urine Bilirubin Urine Urobilinogen Ur Leukocyte Esterase Urine RBC Urine WBC Urine WBC Clumps Ur Squamous Epith Cells Urine Bacteria Urine Mucus Micro UA Comment Urine Culture Comments Microbiology 02/16/18 17:35 Clean Catch Urine Urine Culture - Preliminary gram negative rods 02/16/18 16:40 Blood - Peripheral Aerobic Blood Culture - Preliminary No growth in 1 day 02/16/18 16:40 Blood - Peripheral Anaerobic Blood Culture - Preliminary No growth in 1 day 02/16/18 16:40 Blood - Peripheral Aerobic Blood Culture - Preliminary No growth in 1 day 02/16/18 16:40 Blood - Peripheral Anaerobic Blood Culture - Preliminary No growth in 1 day Assessment and Plan - Assessment (1) Encephalopathy Code(s): G93.40 - Encephalopathy, unspecified Status: Acute (2) UTI (urinary tract infection) Code(s): N39.0 - Urinary tract infection, site not specified Status: Acute (3) Renal insufficiency Code(s): N28.9 - Disorder of kidney and ureter, unspecified Status: Acute - Plan 82-year-old male with a PMH of HTN and Chronic Pancreatitis who was brought to the ER by EMS secondary to AMS. Unable to obtain history from patient due to mental status. Encephalopathy: Likely underlying/worsening dementia compounded by acute infection w/ UTI. -CT Head w/ no acute findings. -Neuro Checks, PT for eval/tx. -IV Abx, Rocephin -And is now back at baseline. -Physical therapy eval and treat. Recommending home health care. UTI: U/a w/ UTI -Continue Rocephin -follow up cultures, cultures growing E. coli, sensitive to Rocephin. -P.o. fluid hydration MICHAEL: Creatinine 1.71, previously 1.40 on 09/28/17, likely secondary to UTI/ Dehydration -IVF for hydration -Avoid nephrotoxins -Improved creatinine. DM 2 -Hemoglobin A1c 6.7 -Recommends lifestyle changes. Follow-up with PCP. -Diabetic diet. -States he has DM before and knows how to check his sugar. He thought he had managed it good that he does not take any glypizide anymore. DVT Prophylaxis: SCD/Teds Discharge patient to home Condition on discharge: Improved Diabetic Diet as tolerated Ad Meena activity Rx written:See DC Plan Follow-up with primary care physician at the bedside. Discussed importance of diet compliance. He may take his glipizide from home will start him from here. Monitor for hypoglycemia. Make sure that he checks his sugar daily. Will have home health care nursing for diabetic education. Code Status: Ful Code Discussed Condition With: Patient, nursing Discharge Planning: Plan to DC home when clinically improved. Cultures pending sensitivity
[2018-02-18] MEDS: Pregabalin 75 MG Capsule PO SCH (09:23)
[2018-02-18] MEDS: Senna/Docusate Sodium 8.6/50 MG Tablet PO SCH ×2 (09:23→09:26)
[2018-02-18] MEDS: Lipase/Protease/Amylase 12/38/60 DR Capsule PO SCH ×2 (09:23→13:34)
--- NOTE | 2018-02-18 10:25 | P.DCO ---
- Physical Therapy Order: Evaluate and treat - Occupational Therapy Order: Evaluate and treat - Home Health Nursing Order: Medical education, Signs/symptoms of disease process, Nursing assessment with vital signs - Certification I have seen patient Zane Black on 02/18/18. My clinical findings support the need for the requested home health care services because: Limited mobility due to disease progression, Deconditioned with increased weakness, Infection with risk of complications I certify that my clinical findings support that this patient is homebound because: Unsteady gait/balance
[2018-02-18 12:07] VITALS: BP 168/74; PULSE 75; TEMP 98
[2018-02-18 12:14] LABS: Hemoglobin A1c 6.7 % (4.3-6.0)
== END 2018-02-18 16:34 | disposition home health service (06) ==
LOC: NEPC 16:18 → NEDA 16:18 → NEPFCDU 20:25
PROVIDERS: ADMIT Hospitalist; ATTEND Hospitalist